=== PATIENT | male | born 1985 | race Caucasian/White ===

== ENCOUNTER 2019-01-21 17:56 | Emergency (ER) | payer MEDICAID ==
[~2019-01-21] VITALS: Ht 188 cm; Wt 124.1 kg
[2019-01-21 18:09] VITALS: BP 104/74
[2019-01-21] MEDS ORDERED: BUSP15TA PO (18:27)
[2019-01-21] MEDS ORDERED: FLUO20CA19 PO (18:27)
[2019-01-21 18:50] LABS: RAPID INFLUENZA A Negative (Negative); RAPID INFLUENZA B Negative (Negative)
== END 2019-01-21 19:10 | disposition home or self-care (01) ==
LOC: ED 19:00
DX: B34.9 Viral infection, unspecified (principal); F17.210 Nicotine dependence, cigarettes, uncomplicated
CPT/HCPCS: 87400; 99283